=== PATIENT | male | born 1990 | race Caucasian/White ===

== ENCOUNTER 2021-10-08 20:25 | Emergency (ER) | payer OTHER ==
[~2021-10-08] VITALS: Ht 177.8 cm; Wt 81.8 kg
[2021-10-08 20:33] VITALS: BP 138/72
== END 2021-10-08 21:35 | disposition left against medical advice (07) ==
LOC: EMS 21:13
DX: R07.89 Other chest pain (principal); Z53.21 Procedure and treatment not carried out due to patient leaving prior to being seen by health care provider